=== PATIENT | female | born 1950 | race Caucasian/White ===

== ENCOUNTER 2018-05-27 15:40 | Emergency (ER) | payer BC ==
[~2018-05-27] VITALS: Ht 152.4 cm; Wt 62.6 kg
[2018-05-27 15:51] VITALS: Ht 152.4 cm; Wt 62.6 kg
[2018-05-27 20:43] VITALS: BP 137/58
== END 2018-05-27 20:43 | disposition home or self-care (01) ==
LOC: ED 15:40
DX: R79.89 Other specified abnormal findings of blood chemistry (principal); I10 Essential (primary) hypertension; E11.9 Type 2 diabetes mellitus without complications; Z86.73 Personal history of transient ischemic attack (TIA), and cerebral infarction without residual deficits; Z88.8 Allergy status to other drugs, medicaments and biological substances; Z98.890 Other specified postprocedural states